=== PATIENT | female | born 1965 | race African-American/Black ===

== ENCOUNTER → 2019-06-26 | Outpatient (CLI) | payer OTHER ==
--- NOTE | 2019-06-28 10:08 | MM ---
Reason for exam: screening (asymptomatic). Last mammogram was performed 18 years and 2 months ago. History: Patient is postmenopausal and had first child after 28. Reduction of the left breast. Reduction of the right breast. Physical Findings: A clinical breast exam by your physician is recommended on an annual basis and results should be correlated with mammographic findings. MG Screening Mammo w CAD Bilateral CC and MLO view(s) were taken. No prior studies available for comparison. There are scattered fibroglandular densities. Finding: There are typically benign round, skin, diffuse/scattered calcifications in both breasts. There is no discrete abnormality. ASSESSMENT: Benign, BI-RAD 2 RECOMMENDATION: Routine screening mammogram of both breasts in 1 year.
== END | disposition home or self-care (01) ==
LOC: RADMAMWWP 13:55
PROVIDERS: ATTEND Family Medicine
DX: Z12.31 Encounter for screening mammogram for malignant neoplasm of breast (principal)
CPT/HCPCS: 77067

== ENCOUNTER 2019-09-27 15:38 | Emergency (ER) | payer OTHER ==
[2019-09-27 15:44] VITALS: BP 124/84; PULSE 84; RESP 16; TEMP 97.9
[2019-09-27] MEDS ORDERED: KETOROLAC 30 MG/ML 1 ML VIAL IM STA (16:16)
--- NOTE | 2019-09-27 16:24 | ED ---
Back Pain HPI - General Chief Complaint: Back Pain/Injury Stated Complaint: right side pain Time Seen by Provider: 09/27/19 15:47 Source: patient Limitations: no limitations - History of Present Illness Initial Comments: Patient is a 53 -year-old female with history of recurrent UTIs is presenting to the emergency department with chief complaint of back pain and shoulder pain. Patient reports she been having the back pain since she was 19 years old. Patient states she goes to her primary care but the issue was not addressed accordingly. Patient reports the pain is exacerbated with left and right rotation and forward flexion. Patient denies urinary or bowel symptoms. Patient denies any abdominal pain nausea or vomiting. The patient is also complaining of bilateral shoulder pain especially along the trapezius this seems to be exacerbated whenever she should shrugging. Patient reports taking Advil with minimal improvement. - Related Data Previous Rx's Medication Instructions Recorded Acetaminophen Tab [Tylenol Tab] 500 mg PO Q6H PRN #30 tablet 09/27/19 Allergies Allergy/AdvReac Type Severity Reaction Status Date / Time No Known Allergies Allergy Verified 09/27/19 15:40 Review of Systems ROS Statement: Those systems with pertinent positive or pertinent negative responses have been documented in the HPI. ROS Other: All systems not noted in ROS Statement are negative. Past Medical History Past Medical History: Diabetes Mellitus, Hypertension History of Any Multi-Drug Resistant Organisms: None Reported Past Surgical History: Bariatric Surgery, Breast Surgery, Cholecystectomy, Hysterectomy, Orthopedic Surgery Past Psychological History: ADD/ADHD, Bipolar Smoking Status: Never smoker Past Alcohol Use History: None Reported Past Drug Use History: Marijuana General Exam Limitations: no limitations General appearance: alert, in no apparent distress Head exam: Present: atraumatic, normocephalic, normal inspection Eye exam: Present: normal appearance Pupils: Present: normal accommodation ENT exam: Present: normal exam, mucous membranes moist Neck exam: Present: normal inspection, full ROM Respiratory exam: Present: normal lung sounds bilaterally Cardiovascular Exam: Present: regular rate, normal rhythm, normal heart sounds GI/Abdominal exam: Present: soft, normal bowel sounds. Absent: distended, tenderness, guarding, rebound Extremities exam: Present: normal inspection, full ROM, tenderness (Tenderness along the trapezius bilaterally), normal capillary refill, other (+2 ulnar and radial pulses bilaterally.) Back exam: Present: normal inspection, full ROM, paraspinal tenderness (Bilateral paraspinal tenderness in the lumbar region) Neurological exam: Present: alert, oriented X3, CN II-XII intact, normal gait Psychiatric exam: Present: normal affect, normal mood Skin exam: Present: warm, dry, intact, normal color Course Vital Signs 09/27/19 15:40 Temperature 97.9 F Pulse Rate 84 Respiratory 16 Rate Blood Pressure 124/84 O2 Sat by Pulse 100 Oximetry Medical Decision Making - Medical Decision Making Patient is a 53-year-old female with chronic back pain is presenting to emergency Department with a chief complaint of back pain and shoulder pain. On exam patient has bilateral paraspinal tenderness that is exacerbated left right rotation and forward flexion. No cauda equina. Patient is also having tenderness along the trapezius bilaterally. I suspect this to be musculoskeletal in nature. Considering the patient has had ongoing chronic pain for over 20 years, no further workup was necessary at this time. Patient advised to follow-up with physical therapy. Strict return parameters were thoroughly discussed with patient was understanding and agreeable. Patient advised to take [id number] analgesics for symptomatically relief. Case discussed with physician. - Lab Data Lab Results 09/27/19 Range/Units 16:22 Urine Color Yellow Urine Appearance Clear (Clear) Urine pH 5.5 (5.0-8.0) Ur Specific [place] 1.011 (1.001-1.035) Urine Protein Negative (Negative) Urine Glucose (UA) Negative (Negative) Urine Ketones Negative (Negative) Urine Blood Negative (Negative) Urine Nitrite Negative (Negative) Urine Bilirubin Negative (Negative) Urine Urobilinogen <2.0 (<2.0) mg/dL Ur Leukocyte Esterase Negative (Negative) Disposition Clinical Impression: Mechanical back pain, Shoulder pain, bilateral, Chronic back pain Disposition: HOME SELF-CARE Condition: Stable Instructions (If sedation given, give patient instructions): Acute Low Back Pain (ED) Additional Instructions: Please take prescribed medication as directed. Please follow with primary care. Please return to emergency department symptoms worsen. Continue going to physical therapy. Prescriptions: Acetaminophen Tab [Tylenol Tab] 500 mg PO Q6H PRN #30 tablet PRN Reason: Pain Is patient prescribed a controlled substance at d/c from ED?: No Referrals: Ada Duncan MD [Primary Care Provider] - 1-2 days Time of Disposition: 17:14
[2019-09-27 16:32] LABS: Appearance,Urine Clear (Clear); Bilirubin,Urine Negative (Negative); Blood,Urine Negative (Negative); Color,Urine Yellow; Glucose,Urine (UA) Negative (Negative); Ketones,Urine Negative (Negative); Leukocyte Esterase,Urine Negative (Negative); Nitrite,Urine Negative (Negative); PH, Urine 5.5 (5.0-8.0); Protein,Urine Negative (Negative); Specific Gravity,Urine 1.011 (1.001-1.035); Urobilinogen,Urine <2.0 mg/dL (<2.0)
--- NOTE | 2019-09-27 16:39 | XR ---
EXAMINATION TYPE: XR lumbar spine 2 or 3V DATE OF EXAM: 09/27/2019 COMPARISON: NONE HISTORY: Flank pain TECHNIQUE: 3 views FINDINGS: Vertebra have normal alignment. Posterior elements are intact. Disc spaces are fairly ksenia l. There is no compression fracture. Sacroiliac joints appear intact. IMPRESSION: Negative lumbar spine exam. No fracture.
== END 2019-09-27 17:22 | disposition home or self-care (01) ==
LOC: EC 15:38
DX: M54.9 Dorsalgia, unspecified (principal); G89.29 Other chronic pain; M25.512 Pain in left shoulder; M25.511 Pain in right shoulder
CPT/HCPCS: 81003; 72100; 99283; 96372; J1885

== ENCOUNTER 2020-01-18 12:08 | Emergency (ER) | payer OTHER ==
[2020-01-18 12:25] VITALS: RESP 16
[2020-01-18] MEDS ORDERED: ACETAMINOPHEN TAB 500 MG TAB PO STA (12:54)
[2020-01-18] MEDS ORDERED: SODIUM CHLORIDE 0.9% 1,000 ML IV STA ×2 (12:54)
[2020-01-18] MEDS ORDERED: KETOROLAC 30 MG/ML 1 ML VIAL IVP STA (12:56)
[2020-01-18] MEDS ORDERED: MECLIZINE 12.5 MG TAB PO STA (12:56)
--- NOTE | 2020-01-18 13:33 | XR ---
EXAMINATION TYPE: XR chest 2V DATE OF EXAM: 01/18/2020 COMPARISON: NONE HISTORY: Cough and dizziness TECHNIQUE: Frontal and lateral views of the chest are obtained. FINDINGS: There is no focal air space opacity, pleural effusion, or pneumothorax seen. The cardiac silhouette size is within normal limits. There is a mild dextroscoliosis of the thoracic spine. The osseous structures are intact. Surgical clips at the gastroesophageal junction and in the right upper quadrant are seen. IMPRESSION: No acute cardiopulmonary process.
--- NOTE | 2020-01-18 13:34 | XR ---
EXAMINATION TYPE: XR KUB DATE OF EXAM: 01/18/2020 COMPARISON: NONE HISTORY: Abdominal pain TECHNIQUE: One view abdominal series FINDINGS: The osseous structures are intact. The bowel gas pattern is nonspecific. Dilated bowel loops are see n with air-fluid levels. Postsurgical changes are seen. Curvature the spine noted. Lung bases clear. IMPRESSION: 1. Correlate for partial obstruction or ileus.
[2020-01-18 13:45] LABS: Sodium 138 mmol/L (137-145)
[2020-01-18 13:48] LABS: ALT 14 U/L (4-34); AST 25 U/L (14-36); African American GFR (CKD) >90 (>60 ml/min/1.73 sqM); Albumin 3.7 g/dL (3.5-5.0); Alkaline Phosphatase 125 U/L (38-126); Anion Gap 6 mmol/L; Blood Urea Nitrogen 7 mg/dL (7-17); Calcium 9.7 mg/dL (8.4-10.2); Carbon Dioxide 25 mmol/L (22-30); Chloride 107 mmol/L (98-107); Glucose 77 mg/dL (74-99); Non-African American GFR(CKD) >90 (>60 ml/min/1.73 sqM); Potassium 4.1 mmol/L (3.5-5.1); Total Bilirubin 0.2 mg/dL (0.2-1.3); Total Protein 6.6 g/dL (6.3-8.2)
[2020-01-18 13:50] LABS: Basophils # (A) 0.1 k/uL (0-0.2); Basophils % (A) 2 %; Eosinophils # (A) 0.1 k/uL (0-0.7); Eosinophils % (A) 4 %; HCT 34.7 % (34.0-46.0); HGB 11.6 gm/dL (11.4-16.0); Lymphocytes # (A) 1.5 k/uL (1.0-4.8); Lymphocytes % (A) 41 %; MCH 29.1 pg (25.0-35.0); MCHC 33.4 g/dL (31.0-37.0); MCV 87.2 fL (80.0-100.0); Mean Platelet Volume 7.7; Monocytes # (A) 0.2 k/uL (0-1.0); Monocytes % (A) 5 %; Neutrophils # (A) 1.7 k/uL (1.3-7.7); Neutrophils % (A) 46 %; Platelet Count 266 k/uL (150-450); RBC 3.98 m/uL (3.80-5.40); RDW 13.4 % (11.5-15.5); WBC 3.7 k/uL (3.8-10.6)
--- NOTE | 2020-01-18 14:51 | ED ---
Fever HPI - General Chief Complaint: Fever Stated Complaint: fever, cough Time Seen by Provider: 01/18/20 12:26 Source: patient, RN notes reviewed, old records reviewed Mode of arrival: ambulatory Limitations: no limitations - History of Present Illness Initial Comments: This patient's a 54-year-old female who presents emergency department today for evaluation for concern for multiple complaints. Patient reports that she's been having upper respiratory congestion cough complaining of popping in her ears and occasional vertigo. She also states for the past day she's been having some lower abdominal pain. She states that she has had a history of UTIs in the past. Patient states that she's had no recent fevers or chills. She denies any chest pain or shortness of breath. - Related Data Previous Rx's Medication Instructions Recorded Acetaminophen Tab [Tylenol Tab] 500 mg PO Q6H PRN #30 tablet 09/27/19 Amoxic-Pot Clav 875-125Mg 1 tab PO Q12HR #20 tablet 01/18/20 [Augmentin 875-125] Meclizine [Antivert] 25 mg PO TID #20 tab 01/18/20 Allergies Allergy/AdvReac Type Severity Reaction Status Date / Time No Known Allergies Allergy Verified 01/18/20 12:20 Review of Systems ROS Statement: Those systems with pertinent positive or pertinent negative responses have been documented in the HPI. ROS Other: All systems not noted in ROS Statement are negative. Past Medical History Past Medical History: Diabetes Mellitus, Hypertension History of Any Multi-Drug Resistant Organisms: None Reported Past Surgical History: Bariatric Surgery, Breast Surgery, Cholecystectomy, Hysterectomy, Orthopedic Surgery Past Psychological History: ADD/ADHD, Bipolar Smoking Status: Never smoker Past Alcohol Use History: None Reported Past Drug Use History: Marijuana General Exam - General Exam Comments Initial Comments: 54-year-old female. Alert and oriented 3. Patient Patient also be distress. Limitations: no limitations General appearance: alert Head exam: Present: atraumatic, normocephalic, normal inspection Eye exam: Present: normal appearance, PERRL, EOMI. Absent: scleral icterus, conjunctival injection, periorbital swelling ENT exam: Present: normal exam, mucous membranes moist, TM's normal bilaterally, normal external ear exam, other (sinus tenderness, fluid level in R TM. ) Neck exam: Present: normal inspection, full ROM. Absent: tenderness, meningismus, lymphadenopathy Respiratory exam: Present: normal lung sounds bilaterally. Absent: respiratory distress, wheezes, rales, rhonchi, stridor Cardiovascular Exam: Present: regular rate, normal rhythm, normal heart sounds. Absent: systolic murmur, diastolic murmur, rubs, gallop, clicks GI/Abdominal exam: Present: soft, tenderness (RLQ tenderness) Extremities exam: Present: normal inspection, full ROM, normal capillary refill. Absent: tenderness, pedal edema, joint swelling, calf tenderness Back exam: Present: normal inspection Neurological exam: Present: alert, oriented X3, CN II-XII intact Psychiatric exam: Present: normal affect, normal mood Skin exam: Present: warm, dry, intact, normal color. Absent: rash Course Vital Signs 01/18/20 01/18/20 12:20 15:49 Temperature 98.8 F 98.1 F Pulse Rate 82 58 L Respiratory 16 16 Rate Blood Pressure 123/70 114/83 O2 Sat by Pulse 100 99 Oximetry Medical Decision Making - Medical Decision Making This patient's a 54-year-old female with multiple complaints. Complaining of abdominal pain, sinus congestion, possible UTI and coughing. Patient's chest x- ray is clear. Lungs are clear. Patient's labs are reviewed. She has some leukopenia discussed possibly viral syndrome. She complains of some abdominal pain. CT abdomen and pelvis was completed after KUB showed concern for possible obstruction versus ileus. Patient CT images evidence of colitis and enteritis. With evidence of concern for slight UTI, evidence of colitis and also com plaining of sinusitis Patient be started on Augmentin. Also discharge and Patient with meclizine with occasional episodes of vertigo. Patient is agreeable to plan will comply. Return parameters were discussed. - Lab Data Result diagrams: 01/18/20 13:00 01/18/20 13:00 Lab Results 01/18/20 01/18/20 01/18/20 Range/Units 12:22 13: 13:00 WBC 3.7 L (3.8-10.6) k/uL RBC 3.98 (3.80-5.40) m/uL Hgb 11.6 (11.4-16.0) gm/dL Hct 34.7 (34.0-46.0) % MCV 87.2 (80.0-100.0) fL MCH 29.1 (25.0-35.0) pg MCHC 33.4 (31.0-37.0) g/dL RDW 13.4 (11.5-15.5) % Plt Count 266 (150-450) k/uL Neutrophils % 46 % Lymphocytes % 41 % Monocytes % 5 % Eosinophils % 4 % Basophils % 2 % Neutrophils # 1.7 (1.3-7.7) k/uL Lymphocytes # 1.5 (1.0-4.8) k/uL Monocytes # 0.2 (0-1.0) k/uL Eosinophils # 0.1 (0-0.7) k/uL Basophils # 0.1 (0-0.2) k/uL Manual Slide Review Performed Sodium (137-145) mmol/L Potassium (3.5-5.1) mmol/L Chloride (98-107) mmol/L Carbon Dioxide (22-30) mmol/L Anion Gap mmol/L BUN (7-17) mg/dL Creatinine (0.52-1.04) mg/dL Est GFR (CKD-EPI)AfAm (>60 ml/min/1.73 sqM) Est GFR (CKD-EPI)NonAf (>60 ml/min/1.73 sqM) Glucose (74-99) mg/dL Calcium (8.4-10.2) mg/dL Total Bilirubin (0.2-1.3) mg/dL AST (14-36) U/L ALT (4-34) U/L Alkaline Phosphatase (38-126) U/L Total Protein (6.3-8.2) g/dL Albumin (3.5-5.0) g/dL Urine Color Yellow Urine Appearance Cloudy H (Clear) Urine pH 5.5 (5.0-8.0) Ur Specific [place] 1.012 (1.001-1.035) Urine Protein Negative (Negative) Urine Glucose (UA) Negative (Negative) Urine Ketones Negative (Negative) Urine Blood Negative (Negative) Urine Nitrite Negative (Negative) Urine Bilirubin Negative (Negative) Urine Urobilinogen <2.0 (<2.0) mg/dL Ur Leukocyte Esterase Moderate H (Negative) Urine RBC 1 (0-5) /hpf Urine WBC 39 H (0-5) /hpf Ur Squamous Epith Cells 1 (0-4) /hpf Urine Bacteria Many H (None) /hpf Urine Mucus Moderate H (None) /hpf Heterophile Antibody Negative (Negative) Influenza Type A RNA (Not Detectd) Influenza Type B (PCR) (Not Detectd) Group A Strep Rapid (Negative) 01/18/20 01/18/20 Range/Units 13:00 13:00 WBC (3.8-10.6) k/uL RBC (3.80-5.40) m/uL Hgb (11.4-16.0) gm/dL Hct (34.0-46.0) % MCV (80.0-100.0) fL MCH (25.0-35.0) pg MCHC (31.0-37.0) g/dL RDW (11.5-15.5) % Plt Count (150-450) k/uL Neutrophils % % Lymphocytes % % Monocytes % % Eosinophils % % Basophils % % Neutrophils # (1.3-7.7) k/uL Lymphocytes # (1.0-4.8) k/uL Monocytes # (0-1.0) k/uL Eosinophils # (0-0.7) k/uL Basophils # (0-0.2) k/uL Manual Slide Review Sodium 138 (137-145) mmol/L Potassium 4.1 (3.5-5.1) mmol/L Chloride 107 (98-107) mmol/L Carbon Dioxide 25 (22-30) mmol/L Anion Gap 6 mmol/L BUN 7 (7-17) mg/dL Creatinine 0.59 (0.52-1.04) mg/dL Est GFR (CKD-EPI)AfAm >90 (>60 ml/min/1.73 sqM) Est GFR (CKD-EPI)NonAf >90 (>60 ml/min/1.73 sqM) Glucose 77 (74-99) mg/dL Calcium 9.7 (8.4-10.2) mg/dL Total Bilirubin 0.2 (0.2-1.3) mg/dL AST 25 (14-36) U/L ALT 14 (4-34) U/L Alkaline Phosphatase 125 (38-126) U/L Total Protein 6.6 (6.3-8.2) g/dL Albumin 3.7 (3.5-5.0) g/dL Urine Color Urine Appearance (Clear) Urine pH (5.0-8.0) Ur Specific [place] (1.001-1.035) Urine Protein (Negative) Urine Glucose (UA) (Negative) Urine Ketones (Negative) Urine Blood (Negative) Urine Nitrite (Negative) Urine Bilirubin (Negative) Urine Urobilinogen (<2.0) mg/dL Ur Leukocyte Esterase (Negative) Urine RBC (0-5) /hpf Urine WBC (0-5) /hpf Ur Squamous Epith Cells (0-4) /hpf Urine Bacteria (None) /hpf Urine Mucus (None) /hpf Heterophile Antibody (Negative) Influenza Type A RNA Not Detected (Not Detectd) Influenza Type B (PCR) Not Detected (Not Detectd) Group A Strep Rapid Negative (Negative) - Radiology Data Radiology results: report reviewed Chest x-ray is negative for any acute cardiac vomiting process. Correlate for partial obstruction or ileus. CT is crawling for her enteritis colitis abnormal density and sacrum indeterminate. Both would not scan may be of benefit. Disposition Clinical Impression: Sinusitis, Colitis, Vertigo Disposition: HOME SELF-CARE Condition: Good Instructions (If sedation given, give patient instructions): Vertigo (ED), Colitis (ED) Additional Instructions: Patient have clear liquid diet. Take the medications as prescribed. Return to emergency department if any alarming signs or symptoms occur. Prescriptions: Meclizine [Antivert] 25 mg PO TID #20 tab Amoxic-Pot Clav 875-125Mg [Augmentin 875-125] 1 tab PO Q12HR #20 tablet Is patient prescribed a controlled substance at d/c from ED?: No Referrals: Ada Duncan MD [Primary Care Provider] - 1-2 days Time of Disposition: 15:37
[2020-01-18 15:18] LABS: Appearance,Urine Cloudy (Clear); Bacteria,Urine Many /hpf; Bilirubin,Urine Negative (Negative); Blood,Urine Negative (Negative); Color,Urine Yellow; Glucose,Urine (UA) Negative (Negative); Ketones,Urine Negative (Negative); Leukocyte Esterase,Urine Moderate (Negative); Mucus,Urine Moderate /hpf; Nitrite,Urine Negative (Negative); PH, Urine 5.5 (5.0-8.0); Protein,Urine Negative (Negative); RBC,Urine 1 /hpf (0-5); Specific Gravity,Urine 1.012 (1.001-1.035); Squamous Epithelial Cell,Urine 1 /hpf (0-4); Urobilinogen,Urine <2.0 mg/dL (<2.0); WBC,Urine 39 /hpf (0-5)
--- NOTE | 2020-01-18 15:33 | CT ---
EXAMINATION TYPE: CT abdomen pelvis w con DATE OF EXAM: 01/18/2020 COMPARISON: KUB same date HISTORY: Cough, fever, achiness and abdominal pain. CT DLP: 814.2 mGycm Automated exposure control for dose reduction was used. TECHNIQUE: Helical acquisition of images from the lung bases through the pelvis have been completed. CONTRAST: Performed without Oral Contrast and with IV Contrast, patient injected with 100 mL of Isovue 300. FINDINGS: Multiple surgical clips are present in the abdomen. LUNG BASES: No significant abnormality is appreciated. AORTA: No significant abnormality is appreciated. LIVER/GB: Liver is enlarged. Patient is post cholecystectomy.. PANCREAS: No significant abnormality is seen. SPLEEN: No significant abnormality is seen. ADRENALS: No significant abnormality is seen. KIDNEYS: No significant abnormality is seen. REPRODUCTIVE ORGANS: Uterus and adnexal structures are not seen. BOWEL: Colonic wall thickening is nonspecific. There are areas of small bowel wall thickening additi onally. FREE AIR: No Free Air visible. ASCITES: None visible. PELVIC ADENOPATHY: None visualized. RETROPERITONEAL ADENOPATHY: No Retroperitoneal Adenopathy visible. URINARY BLADDER: No significant abnormality is seen. OSSEOUS STRUCTURES: There is a spinal curvature. Degenerative disc changes are present in the visual ized spine. Some associated facet arthropathy at the lower lumbar spine. Abnormal bone density presen t within the sacrum is indeterminate, somewhat sclerotic appearance with areas of cystic lucency are present, no evident bone destruction however. IMPRESSION: CORRELATE FOR ENTERITIS, COLITIS. ABNORMAL DENSITY IN THE SACRUM IS INDETERMINATE, BONE SCAN MAY BE O F BENEFIT INDICATED.
[2020-01-18 15:50] VITALS: BP 114/83; PULSE 58; TEMP 98.1
== END 2020-01-18 15:51 | disposition home or self-care (01) ==
LOC: EC 12:08
DX: J32.9 Chronic sinusitis, unspecified (principal); K52.9 Noninfective gastroenteritis and colitis, unspecified; R42 Dizziness and giddiness; D72.819 Decreased white blood cell count, unspecified; E11.9 Type 2 diabetes mellitus without complications; I10 Essential (primary) hypertension; Z98.84 Bariatric surgery status
CPT/HCPCS: 36415; 80053; 85025; 86308; 81001; 87086; 87081; 87430; 87077; 87186; 87502; 71046; 74018; 74177; 99284; 96374; 96361 ×3; J1885; Q9967

== ENCOUNTER → 2020-10-16 | Outpatient (CLI) | payer OTHER | END | disposition home or self-care (01) | LOC: RADMAMWWP 16:27 | PROVIDERS: ATTEND Family Medicine | DX: Z53.9 Procedure and treatment not carried out, unspecified reason (principal) ==